=== PATIENT | female | born 1970 | race African-American/Black ===

== ENCOUNTER 2016-07-03 19:10 | Emergency (ER) | payer OTHER ==
[~2016-07-03] VITALS: Ht 162.6 cm; Wt 73.4 kg
[~2016-07-03 19:10] MED LIST: ENDOCET 5-3251 EACH PO; Motrin PO; VOLTAREN75 MG PO
[2016-07-03 20:37] VITALS: BP 127/63
== END 2016-07-03 20:38 | disposition home or self-care (01) ==
LOC: EME 19:10 → EXP 19:10
DX: N64.89 Other specified disorders of breast (principal)
CPT/HCPCS: 99281; 99284